=== PATIENT | male | born 1945 | race Caucasian/White ===

== ENCOUNTER → 2020-07-01 15:59 | Outpatient (CLI) | payer MEDICARE, OTHER, SELFPAY | PROVIDERS: PCP Family Medicine; Visit Provider Specialist | DX: N39.0 Urinary tract infection, site not specified (principal); N40.1 Benign prostatic hyperplasia with lower urinary tract symptoms; N13.8 Other obstructive and reflux uropathy; N32.0 Bladder-neck obstruction; R33.9 Retention of urine, unspecified | CPT/HCPCS: 52000; 81002; 87077; 87086; 87186; 99215 ==

== ENCOUNTER → 2020-07-24 10:03 | Outpatient (CLI) | payer MEDICARE, OTHER, SELFPAY ==
[2020-07-24 10:57] LABS: COVID19 -Nasal RAPID Negative (Negative)
== END ==
PROVIDERS: PCP Family Medicine; Visit Provider Specialist
DX: Z20.822 Contact with and (suspected) exposure to COVID-19 (principal)
CPT/HCPCS: 87635; C9803

== ENCOUNTER 2020-07-27 06:24 | Day surgery (SDC) | payer MEDICARE, OTHER, SELFPAY ==
[2020-07-23 08:13] VITALS: BMI 30.9
[2020-07-27] VITALS (10 sets, daily range): BP systolic 117–158; BP diastolic 68–86; PULSE 10–64; RESP 8–58; TEMP 36.1–36.2; O2SAT 96–99; BMI 30.9
[2020-07-27] MEDS: LACTATED RINGERS 1,000 ML 42 ML IV (07:29)
--- NOTE | 2020-07-27 07:35 | PM.PREOP ---
Pre-operative Note Interval Note History & Physical reviewed/Exam performed by Physician: Yes Changes to H&P: No
[2020-07-27] MEDS: AMPICILLIN/SULBACTAM 3 GM 3 GM in SODIUM CHLORIDE 0.9% 100 ML IV (07:45)
[2020-07-27] MEDS: GENTAMICIN 160 MG in SODIUM CHLORIDE 0.9% 100 ML 104 ML IV (07:55)
--- NOTE | 2020-07-27 08:13 | SUR.OPER ---
Lithotomy on padded OR bed, head on pillow, arms secured on padded arm boards at <90 degrees abduction. Legs secured in padded yellow fins stirrups.
[2020-07-27] MEDS: BELLADONNA/OPIUM SUPPOSITORIES 1 EACH PR (08:18)
--- NOTE | 2020-07-27 08:38 | PM.OP.1 ---
Operative Date/Time/Diagnoses Date of procedure: 07/27/20 Time of procedure: 08:38 Pre-op diagnosis: 1. Urinary retention 2. Bladder neck contracture Post-op diagnosis: same Procedure & Clinicians Procedure: 1. Transurethral resection of prostate (button electrode). 2. Transurethral resection of bladder neck contracture. Same procedure as scheduled: Yes Indications: 1. Obstructing prostatic regrowth. 2. Bladder neck contracture. Surgeon: Trisha Ohara Click Yes if Unassisted: Yes Anesthesia Type: General Operative Notes Findings: 1. Urethra-normal caliber without annular stricture or lesion. 2. External sphincter-coapted with normal over line rigid urothelium. 3. Prostate-nodular obstructing regrowth particularly from the left lateral aspect. There is a tight, for 18 Hebrew bladder neck contracture. 4. 2+ trabeculation. 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 Closure Type: not applicable Specimen(s): none sent Applied: catheter (#22F [address] way silicone Barnes catheter.) Estimated Blood Loss (mL): 0 Blood products transfused: none Procedure in detail: The patient was positioned supine was administered general anesthesia. He was then repositioned semi lithotomy and the lower abdomen, genitalia, and groin were prepped and draped in sterile fashion. The 25 Hebrew resectoscope was then advanced in lower urinary tract under direct visualization with the findings as described above. Scope could not be advanced into the bladder proper due to bladder neck contracture. The working element of the scope was then fitted with the button electrode. TUR of the bladder neck was then commenced starting laterally at 3 and 9:00 o'clock. The intervening legs posteriorly was then resected to create a smooth transition from the prostatic fossa into the bladder floor. Additional obstructing regrowth from the left lateral wall was then resected also with the cautery button electrode. Hemostasis was excellent. The bladder was then left partially filled and the resectoscope was removed. A 22 Hebrew silicone Barnes catheter was then advanced into the bladder. Balloon was then inflated to 25 cc and the catheter was placed to gravity drainage. The patient was then repositioned supine, was awakened, and transferred to a rmanakin sabot for transport to PACU. Complications: none Post-operative Condition: stable Disposition: PACU Plan for aftercare: Discharge home
--- NOTE | 2020-07-27 09:59 | SUR.PHASEII ---
Pt up to BR, emptied own scott cath with good technique. Will review paper with at car.
== END 2020-07-27 10:07 | disposition home or self-care (01) ==
LOC: OR 06:26 → ICU 08:48
PROVIDERS: PCP Family Medicine; Referring Provider Family Medicine; Visit Provider Specialist
PROC: 0VT08ZZ Resection of Prostate, Via Natural or Artificial Opening Endoscopic (ICD-10-PCS; CPT 52601; principal; 2020-07-27 07:45)
DX: N32.0 Bladder-neck obstruction (principal); N40.1 Benign prostatic hyperplasia with lower urinary tract symptoms; R33.9 Retention of urine, unspecified; N13.8 Other obstructive and reflux uropathy; I10 Essential (primary) hypertension; E78.5 Hyperlipidemia, unspecified
CPT/HCPCS: 52630; 82962; J0295; J1100; J2250; J2405; J2704; J3010